=== PATIENT | female | born 1955 | race Hispanic/Latino ===

== ENCOUNTER 2017-12-03 05:54 | Day surgery (SDC) | payer OTHER ==
[2017-12-01 12:13] LABS: Absolute Monocytes 0.4 K/uL (0.1-1.3); Absolute Neutrophil 4.4 K/uL (1.8-8.0); Basophils % 0.4 % (0-1.3); Eosinophils % 1.7 % (0-4.4); Hematocrit 33.4 % (36.0-45.0); Lymphocytes % 29.2 % (15.3-44.8); MCH 30.5 pg (27.0-35.0); MCV 84.3 fL (80-100); MPV 9.4 fL (7.6-11.3); Monocytes % 5.5 % (3.3-12.3); RBC Red Blood Cell Count 3.96 M/uL (3.86-4.86)
[2017-12-01 12:17] LABS: Urine Appearance CLEAR; Urine Bilirubin NEGATIVE (NEG); Urine Blood NEGATIVE (NEG); Urine Color YELLOW; Urine Glucose NEGATIVE (NEG); Urine Protein NEGATIVE (NEG); Urine Urobilinogen 0.2 mg/dL (0.2-1.0)
[2017-12-01 12:45] LABS: Urine Microscopic Reflex ORDER UMIC
[2017-12-01 15:04] LABS: Urine Bacteria <20 /HPF (<20); Urine Culture Reflex Order NOT NEEDED; Urine RBC <5 /HPF (NONE SEEN)
[2017-12-03] MEDS ORDERED: SCOPOLAMINE HYDROBROMIDE PATCH TD ONE (06:12)
[2017-12-03] MEDS ORDERED: Ringers Lactate 1,000 ML IV ONE (06:12)
[2017-12-03] MEDS ORDERED: NA CHLORIDE 0.9% 1,000 ML ONE (06:46)
[2017-12-03] MEDS ORDERED: PROPOFOL 200 MG/20 ML VIAL IV ONE (06:51)
[2017-12-03] MEDS ORDERED: ROCURONIUM 50 MG/5 ML VIAL IV ONE ×2 (06:52→07:59)
[2017-12-03] MEDS ORDERED: LIDOCAINE 2% MPF 5 ML VIAL ONE (06:53)
[2017-12-03] MEDS ORDERED: FENTANYL CITR 250 MCG/5 ML ONE (06:53)
[2017-12-03] MEDS ORDERED: MIDAZOLAM HCL 2 MG/2 ML INJ ONE (06:54)
[2017-12-03] MEDS ORDERED: ONDANSETRON HCL 40 MG/20 ML VIAL ONE ×2 (06:55→09:39)
[2017-12-03] MEDS ORDERED: GLYCOPYRROLATE 0.2 MG/ML SYR ONE (07:24)
[2017-12-03] MEDS: CEFAZOLIN/SWI 1gm 1 GM/10 ML SYR ONE ×2 (07:26→07:29)
[2017-12-03] MEDS ORDERED: EPHEDRINE SULF 50 MG/5 ML SYR ONE (07:49)
[2017-12-03] MEDS ORDERED: DEXAMETHASONE 10 MG/ML VIAL ONE (08:01)
[2017-12-03] MEDS: Ringers Lactate 1,000 ML IV ONE ×3 (08:59→09:54)
[2017-12-03] MEDS ORDERED: NEOSTIGMINE 1 MG/ML -5 ML SYRINGE ONE (09:40)
[2017-12-03] MEDS ORDERED: KETOROLAC 30 MG/ML INJ ONE (09:55)
[2017-12-03] MEDS ORDERED: FENTANYL CITR 100 MCG/2 ML ONE (10:03)
[2017-12-03] MEDS: MEPERIDINE HCL 50 MG/ML AMP ONE ×2 (10:42→10:50)
[2017-12-03] MEDS ORDERED: METOCLOPRAMIDE 10 MG/2mL INJ ONE (12:24)
[2017-12-03] MEDS ORDERED: ONDANSETRON 4 MG/2 ML VIAL ONE (12:24)
--- NOTE | 2017-12-03 13:11 | OP ---
Date of Procedure: 12/03/2017 Surgeon: Keke Headley MD High School Teacher: Ravi Kerr. Preoperative Diagnoses: Pelvic pain and persistent cervical dysplasia. She had CHERISE 1. Postoperative Diagnoses: Pelvic pain and persistent cervical dysplasia. She had CHERISE 1. Pelvic pain and leiomyomata. Adhesions of the sigmoid to the left lateral wall and duplication of the ureters b ilaterally. Procedures Performed: Total laparoscopic hysterectomy, bilateral salpingo-oophorectomy, cystoscopy, lysis of sigmoid adhesions. Anesthesia: General endotracheal. Estimated Blood Loss: 100. Urine Output: 300. Specimens: Uterus, tubes, and ovaries. Complications: No complications. Drains: None. Condition: Stable. Indications: The patient is a 62-year-old with an LSIL Pap. She had a colposcopy. She had CHERISE 1, c onfirmed. She has had deep dyspareunia and pelvic pain for which she was evaluated. There was just no evidence of any adnexal masses. Endometrium was sampled, and there was no evidence of any dysplas ia or atypia or malignancy. So, we discussed options, benefits, and risks, observation with colposco pies and observation for pain. She does not have any obvious urological symptoms or GI symptoms, so we went ahead to consent her for total laparoscopic hysterectomy, bilateral salpingo-oophorectomy, po ssible colpopexy if needed. She has had history of TIA in the past, however, no symptoms. Blood pressure was slightly elevated a t times, taking lisinopril and well controlled. Description Of Procedure: After informed consent was verified, she was brought to the OR. She was p laced in a supine fashion on the operating table. After general anesthesia was given, she was placed in a dorsal lithotomy position using Toñito stirrups. One gram of Ancef was given. Exam was perform ed. Uterus was found to be anteflexed, well suspended, apex. No adnexal masses. No scar in the cul -de-sac. Abdomen, vulva, vagina, and perineum were prepped and draped in a sterile fashion. Dias was placed to drain the bladder and VCare used to place in the uterus for manipulation and fixed in place. This area was draped after connecting the Dias to an LR bag, emptied 300 for retrograde filling. A 1 cm infraumbilical incision was made with a scalpel using the open laparoscopy technique. Fascia was incised, tagged. Peritoneum entered bluntly and S retractor placed inside and Garrett introduced. Site of entry was checked and was unremarkable. There were adhesions from the open cholecystectomy superior to the incision and into the right upper quadrant. Liver, peritoneal surfaces were all unr emarkable. The patient was placed in Trendelenburg position. There was a 5 mm left lower quadrant, 10 mm suprapubic ports were placed under direct vision. The left lower quadrant port was placed late r when there was bleeding from the right side. Examination of the pelvic cavity showed adhesions of the sigmoid colon starting at the natural attach ment at the left brim of the pelvis all the way down to the IP ligament and to the lateral aspect of the pelvic sidewall in the posterior broad ligament. The area of the tubal adhesions and the tubal l igation had a lot of adhesions with the epiploicae of the sigmoid as well. Both ureters were visualized and attention was drawn to the ones that were peristalsing and were obvi ous, and this appeared to be unremarkable in positioning, and there was no scar. There was 1 area of endometriosis on the lateral aspect of the left wall, but this was totally scarred did not appear to have any active endometriosis. The ovaries on both sides appeared to be unremarkable. Tube on the right side was normal. Uterus wi th multiple fibroids and slightly distorted. A 5 mm LigaSure was used to take down the adhesions. The push spread technique was used to open up w indows and the dissection was performed to take down the colon from first the anterior mesosalpinx. Once this was taken down systematically, the adhesions were taken down from the left tube using cold scissors. Then, posteriorly from the lateral wall, the adhesions were taken down with scissors as we ll as occasionally with bipolar. Once all the adhesions were systematically taken down, this took ab out 15 minutes of the case. Once all the adhesions were down, then the left mesosalpinx and the IP l igament were well visualized, and they appeared to be completely free, so I did not take down any fur ther adhesions on the top where the natural attachment was. On examination of the anterior cul-de-sac, the bladder was very visible. LigaSure was used to take down the mesosalpinx tube, utero-ovarian ligament, round ligament, both marques ves of the broad ligament were opened up anteriorly and posteriorly. The anterior was taken down to open the peritoneum all the way to the right broad ligament to create a bladder flap and posterior to the left uterosacral ligament. The broad ligament was skeletonized to expose the vessels. A similar dissection was performed on the opposite side taking down the mesosalpinx tube, utero-ovari an ligament then the round ligament, and opened the anterior and posterior layers of the peritoneum. Anteriorly it was connected to finish the bladder flap, posteriorly taking down the broad ligament, countered a vessel and bleeding here. This was cauterized in the medial and lateral aspects towards the specimen and to the patient's side. Once this was cauterized, I was unable to raise the bladder flap here due to the vessel seal, then the bladder flap was visualized again and attention directed t o there. Monopolar was used to enter the vesicovaginal space. Bladder pushed down inferiorly. Then , the vessels were exposed on both sides. The bipolar was used to take down these. On the right bob e, there was bleeding after the uterine was taken down, and so this was held with the help of a grasp er, and after using the bipolar LigaSure, then a 5 mm clip was placed on the uterine vessel. There w as excellent hemostasis. The clip was placed to doubly be sure after the vessel seal was done. Then on the opposite side, the vessels were taken down. The cardinal ligaments were taken down on mick th sides. There was mild oozing on both sides. However, this was cauterized with the help of the bi polar basket tip and it was hemostatic. Circumferential colpotomy was performed with a monopolar aura k blade and once the entire colpotomy was done, the specimen was pulled out through the vagina. In the posterior peritoneal margin, there was bleeding, and this was cauterized with the help of the bipolar. There was mild bleeding from the right pedicle as well and this was picked up with the Raven jacobs and cauterized with the LigaSure. There was adequate hemostasis. After thorough irrigation suc tion, the tubes and ovaries were removed with the help of the LigaSure and dissecting open the tube a nd then the IP ligament were exposed and taken down first on the left than on the right side. After all the specimens were retrieved through the vagina, a vaginal occluder with a glove stuffed with spo nge was placed for pneumo-occlusion. Then thorough irrigation and suction of the cuff were done as w ell as the pedicles, mostly there was adequate hemostasis, so went ahead and closed the vaginal cuff, especially on the right lateral corner with the help of a 0 Vicryl in a hvqqnf-ir-hrxnr fashion. On ce this was tied, there was good hemostasis. Then, 1 simple left angle stitch was placed and 2 figur e-of-eights in the middle with good apposition of both vaginal varma, making sure that included the r ectovaginal septum as well as the precervical fascia for good apposition of both fascial ends at the level of the cuff. Then, a 3-0 Vicryl was used to close the peritoneum anteriorly and posteriorly on top of the cuff. O nce this was done, then cystoscopy was performed. The ureters were checked for peristalsis on both s ides. The left one was promptly peristaltic. The right one as well. However, cysto was performed t o confirm the patency. A 17-Faroese sheath, 30 degree lens, and normal saline were used for cystoscopy. There were 2 orifice s of the ureters on each side and both of them appeared to be patent. On the left side, both of them were well developed. On the right side, the medial inferior one was slightly narrower than the one that was lateral and distal. There were good streams of urine from both, however, so no evidence of any injury or foreign body in the bladder. The bladder drained, vaginal occluder removed. After looking back in the abdomen, I decided to put some Surgicel to make sure that both lateral pedi cles had excellent hemostasis. Once the Surgicel was distributed and placed here, there was excellen t hemostasis and the trocars were removed under direct vision. Before this was done, we looked in mick th ureters and could tell how the other one was placed slightly inferior to the one that was visualiz ed first. After trocars were removed, fascia at the umbilicus was closed with the help of 0 Vicryl i n vlpfyv-of-lniom fashion simple 0 Vicryl stitch at the suprapubic one. All skin incisions closed wi th the help of Monocryl. The patient was recovered from anesthesia. Dias was removed, which was pl aced to drain the urine after the cysto was completed, then she was recovered from anesthesia. Instr ument, needle, and sponge counts were correct at the end of the case. The patient tolerated the proc edure well. Estimated Blood Loss: 100. Urine Output: 300. She will follow with me in 1 week. LUIS MIGUEL/JAMARI Voice ID: [id number] Report ID: [id number]
[2017-12-03] MEDS ORDERED: HYDROCODONE/APAP 5/325 MG TAB ONE (13:33)
== END 2017-12-03 14:25 | disposition home or self-care (01) ==
LOC: OR 05:54
PROVIDERS: ATTEND Obstetrics & Gynecology
PROC: 0UT2FZZ Resection of Bilateral Ovaries, Via Natural or Artificial Opening With Percutaneous Endoscopic Assistance (ICD-10-PCS; 2017-12-03)
PROC: 0UT7FZZ Resection of Bilateral Fallopian Tubes, Via Natural or Artificial Opening With Percutaneous Endoscopic Assistance (ICD-10-PCS; 2017-12-03)
PROC: 0TJB8ZZ Inspection of Bladder, Via Natural or Artificial Opening Endoscopic (ICD-10-PCS; 2017-12-03)
PROC: 0UT9FZZ Resection of Uterus, Via Natural or Artificial Opening With Percutaneous Endoscopic Assistance (ICD-10-PCS; principal; 2017-12-03 07:00)
DX: R87.612 Low grade squamous intraepithelial lesion on cytologic smear of cervix (LGSIL) (principal); N87.9 Dysplasia of cervix uteri, unspecified; E78.00 Pure hypercholesterolemia, unspecified; I10 Essential (primary) hypertension; N95.2 Postmenopausal atrophic vaginitis; N81.6 Rectocele; D25.9 Leiomyoma of uterus, unspecified; N83.8 Other noninflammatory disorders of ovary, fallopian tube and broad ligament
CPT/HCPCS: 36415; 81003; 81015; 85025; 86850; 86870; 86900; 86901; 86902; 86922; 88307; J0690; J1100; J2175; J2250; J2405; J2710; J2765; J3010; J7030

== ENCOUNTER 2023-07-18 06:49 | Day surgery (SDC) | payer OTHER ==
[2023-07-08 11:10] LABS: Absolute Lymphocytes (CBC) 2.2 K/uL (0.7-4.9); Hematocrit 35.8 % (36.0-45.0); Lymphocytes % 29.7 % (15.3-44.8); MCV 86.1 fL (80-100); MPV 9.1 fL (7.6-11.3); Platelets 252 thou/uL (152-406); RBC Red Blood Cell Count 4.16 M/uL (3.86-4.86)
[2023-07-08 11:20] LABS: Protime INR 1.01
[2023-07-08 11:26] LABS: Potassium 3.7 mEq/L (3.5-5.1)
--- NOTE | 2023-07-08 11:31 | RAD REPORT ---
EXAM DESCRIPTION: RAD - Chest Pa And Lat (2 Views) - 07/08/2023 11:04 am CLINICAL HISTORY: pre op for day surgery, hypertension COMPARISON: CHEST SINGLE VIEW dated 12/02/2014; CHEST SINGLE VIEW dated 03/29/2014; CHEST SINGLE VIEW dated 10/19/2004 FINDINGS: Lines: None. Lungs: No evidence of edema or pneumonia. Pleural: No significant pleural effusions or pneumothorax. Cardiac: The heart size is within normal limits. Mediastinum: Within normal limits. Bones: No acute fractures. Other: None IMPRESSION: No acute cardiopulmonary disease.
[2023-07-18] MEDS ORDERED: Ringers Lactate 1,000 ML IV ONE (07:06)
[2023-07-18] MEDS ORDERED: CEFAZOLIN SODIUM 1 GM/VIAL ONE (07:06)
[2023-07-18] MEDS ORDERED: EPINEPHRINE 1 MG/ML VIAL ONE (07:42)
[2023-07-18] MEDS ORDERED: SCOPOLAMINE HYDROBROMIDE PATCH TD ONE (08:28)
[2023-07-18] MEDS ORDERED: FENTANYL CITR 100 MCG/2 ML ONE (08:51)
[2023-07-18] MEDS ORDERED: MIDAZOLAM HCL 2 MG/2 ML INJ ONE (08:52)
[2023-07-18] MEDS ORDERED: propofoL 200 MG/20 ML VIAL IV ONE (09:36)
[2023-07-18] MEDS ORDERED: ONDANSETRON 4 MG/2 ML VIAL ONE (09:38)
[2023-07-18] MEDS ORDERED: ROCURONIUM 50 MG/5 ML VIAL IV ONE (09:38)
[2023-07-18] MEDS ORDERED: EPHEDRINE SULF 50 MG/ML VIAL ONE (10:01)
[2023-07-18] MEDS ORDERED: dexAMETHasone 10 MG/ML VIAL ONE (10:05)
[2023-07-18] MEDS ORDERED: NEOSTIGMINE 1 MG/ML -10 ML VIAL ONE (11:05)
[2023-07-18] MEDS ORDERED: GLYCOPYRROLATE 0.2 MG/ML SYR ONE (11:05)
--- NOTE | 2023-07-18 11:40 | P.BOP ---
Preoperative diagnosis: right shoulder rotator cuff tear, biceps tendinitis, impingement syndrome Postoperative diagnosis: same Primary procedure: right shoulder arthroscopic rotator cuff debridement Secondary procedure: right shoulder arthroscopic subacromial decompression Other procedure(s): right shoulder arthroscopic biceps tenotomy Profiling Machine Operator: NONE,NONE Estimated blood loss: 5 cc Specimen: none Findings: see dictation Anesthesia: General Complications: None Implants: none Fluids & blood products: per anesthesia record Transferred to: Recovery Room Condition: Good
--- NOTE | 2023-07-18 12:32 | RAD REPORT ---
EXAM DESCRIPTION: RAD - Shoulder 1 View - 07/18/2023 12:11 pm CLINICAL HISTORY: S/P ROTATOR CUFF DEBRIDEMENT, SAD BICEP TENOTOMY COMPARISON: No comparisons FINDINGS: A single frontal projection is submitted. Mild degenerative changes noted. No unexpected i mmediate postop finding.
[2023-07-18 13:25] VITALS: BP 103/54; TEMP 96; O2SAT 100
--- NOTE | 2023-07-18 21:44 | OP ---
Date of Procedure: 07/18/2023 Surgeon: Bradford Minor MD Preoperative Diagnoses: 1.Right shoulder rotator cuff tear. 2.Right shoulder bicipital tenosynovitis. 3.Right shoulder impingement syndrome. Postoperative Diagnoses: 1.Right shoulder rotator cuff tear. 2.Right shoulder bicipital tenosynovitis. 3.Right shoulder impingement syndrome. Procedures Performed: 1.Right shoulder arthroscopic rotator cuff debridement. 2.Right shoulder arthroscopic biceps tenotomy. 3.Right shoulder arthroscopic subacromial decompression. Anesthesia: General endotracheal. Fluids: Per Anesthesia record. Estimated Blood Loss: 3 cc Complications: None. Implants: None. Indication For Procedure: Aimee is a 68-year-old female who presented to my clinic with signs, symp toms, and MRI findings consistent with a retracted right rotator cuff tear. The patient failed conse rvative treatment measures and had significant pain that interfered with her activities of daily juliet ng. I discussed with the patient at length the risks and benefits associated with operative and nono perative treatment. She expressed understanding and elected to proceed with operative treatment. Description Of Procedure: After informed consent was obtained, the patient was identified in the pre operative holding area. The right upper extremity was marked. The patient was then brought back to the PACU, where she underwent a right upper extremity interscalene block performed by the anesthesia team. The patient was then brought back to the operating room and transferred to the operating table in a supine fashion, placed under general endotracheal anesthesia. She was then placed in the beach chair position with her extremities well padded. The right upper extremity was then prepped and tita ped in usual sterile fashion. A time-out was initiated. The correct patient and procedure were conf irmed and identified. The patient did receive her preoperative prophylactic antibiotics. A spinal n eedle was introduced in the shoulder joint via the posterior portal position and then shoulder was in jected with 30 cc of normal saline to distend the capsule. Posterior portal was created and the arth roscope was brought in via the posterior portal position under direct visualization, and anterior por jess and cannula were placed, and diagnostic arthroscopy was performed. The patient was noted to have some significant fraying of the biceps tendon at the anchor near the superior labrum. The biceps te notomy was then performed using a meniscal biter. The superior labrum was then debrided using the ar throscopic shaver. The patient was also noted to have a partial-thickness tear of the superior borde r of the subscapularis, which was debrided using the arthroscopic shaver. Overall, the tendon was at tached to the lesser tuberosity and stable. The patient was found to have no significant loose rose s within the axillary pouch. The anterior and posterior labrum were stable to probe. The patient walters d minimal chondromalacia changes noted of the humeral head and glenoid surface. The patient was note d to have a full-thickness anterior supraspinatus tear, which was retracted to the level of the gleno id. Lateral portal was created and the supraspinatus was then debrided. The scar tissue was then de brided off the undersurface and the bursal side and articular side of the supraspinatus tear. A gras per was then used. The supraspinatus tear was not able to be reduced to the greater tuberosity given the chronicity of the tear. Again, elevator was then used to elevate supraspinatus off the glenoid surface as well as to continue to debride it to remove any adhesions; however, the rotator cuff tear would not reduce and was significantly retracted. At this point, it was elected to continue with the rotator cuff debridement surgery. The rotator cuff tear was then debrided using the arthroscopic sh aver. Next, there was significant fraying of the coracoacromial ligament, and there was some spurrin g of the undersurface of the acromion. A subacromial decompression was performed by performing an ac romioplasty using an arthroscopic simone as well as a radiofrequency ablator to debride out the undersu rface of the acromion. The arthroscopic instruments were then removed without complication. Wounds were then irrigated thoroughly with normal saline. Skin was approximated using 2-0 Vicryl, and fiona ls were approximated using 4-0 Monocryl. Sterile dressings were applied. The patient was placed in a shoulder sling, awakened, and transferred to PACU in stable condition. Postoperative Plan: The patient will follow up in clinic next week for wound check and dressing allen ge. Physical Therapy will be consulted for post decompression protocol. CV/MODL Voice ID: [id number] Report ID: [id number]
== END 2023-07-18 13:05 | disposition home or self-care (01) ==
LOC: OR 06:49
PROVIDERS: ATTEND Orthopaedic Surgery Sports Medicine
PROC: 0RNJ4ZZ Release Right Shoulder Joint, Percutaneous Endoscopic Approach (ICD-10-PCS; principal; 2023-07-18 09:30)
DX: M75.121 Complete rotator cuff tear or rupture of right shoulder, not specified as traumatic (principal); M75.41 Impingement syndrome of right shoulder; M75.21 Bicipital tendinitis, right shoulder
CPT/HCPCS: 93005; 85025; 80048; 36415; 85610; 85730; 71046; 73020; 29822; J2704; J2710; J2250; J3010; J1100; J0171; J2405; J7120; J0690